=== PATIENT | male | born 1970 | race African-American/Black ===

== ENCOUNTER 2018-06-05 11:33 | Inpatient (IN) | payer OTHER ==
[2018-06-05 13:33] VITALS: BMI 21.9
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
[2018-06-05] MEDS ORDERED: MAG HYDROX/AL HYDROX/SIMETH 30 ML UNIT-DOSE CUP PO PRN (14:21)
[2018-06-05] MEDS ORDERED: P-EPHED 60MG/TRIPROLIDI 2.5MG TABLET PO PRN (14:21)
[2018-06-05] MEDS ORDERED: MAGNESIUM CITRATE 300 ML BOTTLE PO PRN (14:21)
[2018-06-05] MEDS ORDERED: MAGNESIUM HYDROX 2400MG/30ML ORAL SUSPENSION 30 ML CUP PO PRN (14:21)
[2018-06-05] MEDS ORDERED: guaiFENesin/D-METHORPHAN HB 10 ML UNIT-DOSE CUPS PO PRN (14:21)
[2018-06-05] MEDS ORDERED: IBUPROFEN 400 MG TABLET (FP) PO PRN (14:21)
[2018-06-05] MEDS ORDERED: ACETAMINOPHEN 325 MG TABLET (FP) PO PRN (14:21)
[2018-06-05] MEDS ORDERED: chlordiazePOXIDE HCL 25 MG CAPSULE PO PRN (14:21)
[2018-06-05] MEDS ORDERED: MENTHOL/PHENOL 1 EACH UD MM PRN (14:21)
[2018-06-05] MEDS: chlordiazePOXIDE HCL 25 MG CAPSULE PO SCH ×2 (17:25→22:13)
[2018-06-05] MEDS ORDERED: MELATONIN 5 MG TABLETS PO PRN (22:00)
[2018-06-05] MEDS: THIAMINE HCL 100 MG TABLET (FP) PO SCH (22:13)
[2018-06-05 23:15] LABS: URINE APPEARANCE CLEAR; URINE BILIRUBIN NEGATIVE (<2.0 mg/dL); URINE COLOR DKYELLOW; URINE GLUCOSE (UA) NEGATIVE (NEGATIVE); URINE KETONE 1+ (NEGATIVE); URINE LEUK ESTERASE NEGATIVE (NEGATIVE); URINE NITRITE NEGATIVE (NEGATIVE); URINE PROTEIN 1+ (NEGATIVE); URINE UROBILINOGEN NEGATIVE mg/dL (0.2-1.0)
[2018-06-06] MEDS: chlordiazePOXIDE HCL 25 MG CAPSULE PO SCH ×4 (05:22→22:27)
[2018-06-06] MEDS: PRENATAL VITAMINS W/ FOLIC ACID TABLET (FP) PO SCH (10:23)
--- NOTE | 2018-06-06 10:23 | CONSULT ---
[facility] Psychiatric Consult - Data Date of interview: 06/06/18 Admission source: [facility] Identifying data: This is one of several admissions to [facility] for this 47 y/ o AA male seeking detoxification treatment for alcohol, benzodiazepine and cocaine dependence. Patient is single without dependents, homeless, unemployed and supported on [employer] benefits. Substance Abuse History: Confirmed by patient. Details in current [facility] report : Smoking history: Current every day smoker. Have you smoked in the past 12 months: Yes. Aproximately how many cigarettes per day: 3. Cigars Per Day: 0. Hx Chewing Tobacco Use: No. Initiated information on smoking cessation: No. - Substances Abused. Cocaine. Route: Inhalation. Frequency: 1-2 times per week. Amount used: $50. Age of first use: 34. Date of Last Use: 06/04/18. * * Alcohol-vodka/beer. Route: Oral. Frequency: Daily. Amount used: 1 1/2 pts./ 3 4 lokos. Age of first use: 17. Date of Last Use: 06/04/18. Evan zodiazepine. Route: Oral. Frequency: 3-6 times per week. Amount used: 8 tabs. Age of first use: 47. Date of Last Use: 06/04/18 Medical History: HIV infection since 1993 (on ART medications). Psychiatric History: Patient denies history of psychiatric hospitalizations or suicide attempts. No prior exposure to psychotropic medications (with the exception of benzodiazepines bought in the streets). Physical/Sexual Abuse/Trauma History: Patient reports a history of severe traumatic life experiences : estrangement from biological mother, " betrayal " from past girlfriends, dysfunctional family, absence of a fatherly figure in his upbringing, poverty, past history of juvenile delinquency, homelessness, limited education in spite of early promises of academic excellence, discovery of being seropositive for HIV at age 22 (from a trusted live-in girlfriend) and multiple addictions. Additional Comment: Urine Drug Screen Results: SANDRA-Cocaine, BZO- Benzodiazepines. Noted. Mental Status Exam - Mental Status Exam Alert and Oriented to: Time, Place, Person Cognitive Function: Good Patient Appearance: Unkempt, Disheveled (tall stature) Mood: Nervous, Withdrawn, Apprehensive Affect: Mood Congruent, Constricted Patient Behavior: Fatigued, Talkative, Appropriate (calm, friendly), Cooperative Speech Pattern: Clear, Appropriate Voice Loudness: Normal Thought Process: Intact, Goal Oriented Thought Disorder: Not Present Hallucinations: Denies Suicidal Ideation: Denies Homicidal Ideation: Denies Insight/Judgement: Fair Sleep: Well Appetite: Good Muscle strength/Tone: Normal Gait/Station: Normal Psychiatric Findings - Problem List (Creole 1, 2,3) (1) Alcohol dependence Current Visit: Yes Status: Acute (2) Cocaine dependence Current Visit: Yes Status: Acute (3) Sedative dependence with current use Current Visit: Yes Status: Acute (4) Nicotine dependence Current Visit: Yes Status: Acute Qualifiers: Nicotine product type: cigarettes Substance use status: unspecified nicotine-induced disorder Qualified Code(s): F17.219 - Nicotine dependence, cigarettes, with unspecified nicotine-induced disorders (5) Substance induced mood disorder Current Visit: Yes Status: Acute - Initial Treatment Plan Initial Treatment Plan: Psychoeducation. Sleep hygiene. Detoxification already in progress. Support and empathy. Patient is made aware of currently available, FDA-approved measures for relapse prevention. Informed of the benefits of naltrexone (oral + KATE formulation), AA fellowship, psychotherapy (cognitive- behavioral) and avoidance of situations/associations that predispose to/trigger relapses. Patient has expressed the wish to be assisted in his goal to enroll in rehabilitation after completion of this course of treatment. Awaits assessment by counselor for referrals (patient willing to stay in rehab at [facility] or be referred elsewhere). Observation.
[2018-06-06 10:47] LABS: HEMATOCRIT 37.4 % (35.4-49); HEMOGLOBIN 11.8 GM/dL (11.7-16.9); MCH 29.3 pg (25.7-33.7); MCHC 31.6 g/dl (32.0-35.9); MEAN CELL VOLUME 92.6 fl (80-96); PLATELET COUNT 174 K/MM3 (134-434); RBC 4.04 M/mm3 (4.00-5.60); WHITE BLOOD COUNT 3.4 K/mm3 (4.0-10.0)
[2018-06-06 10:59] LABS: ALBUMIN 3.5 g/dl (3.4-5.0); ALK PHOS 92 U/L (45-117); ANION GAP 9 MMOL/L (8-16); BILIRUBIN,TOTAL 0.4 mg/dL (0.2-1); BLOOD UREA NITROGEN 26 mg/dL (7-18); CALCIUM 8.5 mg/dL (8.5-10.1); CHLORIDE 101 mmol/L (98-107); CO2 24 mmol/L (21-32); CREATININE 1.4 mg/dL (0.55-1.3); GLUCOSE,RANDOM 104 mg/dL (74-106); POTASSIUM 3.8 mmol/L (3.5-5.1); SGOT/AST 145 U/L (15-37); SGPT/ALT 58 U/L (13-61); SODIUM 134 mmol/L (136-145); TOT PROT 7.8 g/dl (6.4-8.2)
[2018-06-06] MEDS ORDERED: FLU VACCINE QUAD 60 MCG/0.5 ML (MDV 18-19) IM ONE (12:00)
--- NOTE | 2018-06-06 14:20 | PN ---
S CIWA - CIWA Score Nausea/Vomitin-No Nausea/No Vomiting Muscle Tremors: 4-Moderate,w/Arms Extend Anxiety: 4-Mod. Anxious/Guarded Agitation: 3 Paroxysmal Sweats: 1-Minimal Palms Moist Orientation: 0-Oriented Tacttile Disturbances: 0-None Auditory Disturbances: 0-None Visual Disturbances: 0-None Headache: 0-None Present CIWA-Ar Total Score: 12 BHS Progress Note (SOAP) Subjective: ANXIETY,FATIGUE,DECREASED APPETITE. Objective: 06/06/18 14:20 Vital Signs 06/06/18 06/06/18 06/06/18 06:40 09:51 13:09 Temperature 97.6 F 97.7 F 97.7 F Pulse Rate 83 76 85 Respiratory 18 18 18 Rate Blood Pressure 110/60 110/70 100/63 Laboratory Tests 06/05/18 06/06/18 06/06/18 23:00 07:50 07:50 WBC 3.4 L RBC 4.04 Hgb 11.8 Hct 37.4 MCV 92.6 MCH 29.3 MCHC 31.6 L RDW 17.0 H Plt Count 174 D MPV 8.0 Sodium 134 L Potassium 3.8 Chloride 101 Carbon Dioxide 24 Anion Gap 9 BUN 26 H Creatinine 1.4 H Creat Clearance w eGFR 54.32 Random Glucose 104 Calcium 8.5 Total Bilirubin 0.4 AST 145 H ALT 58 Alkaline Phosphatase 92 Total Protein 7.8 Albumin 3.5 Urine Color Dkyellow Urine Appearance Clear Urine pH 5.0 Ur Specific [place] 1.026 Urine Protein 1+ H Urine Glucose (UA) Negative Urine Ketones 1+ H Urine Blood Negative Urine Nitrite Negative Urine Bilirubin Negative Urine Urobilinogen Negative Ur Leukocyte Esterase Negative Urine WBC (Auto) None Urine RBC (Auto) None RPR Titer 06/06/18 07:50 WBC RBC Hgb Hct MCV MCH MCHC RDW Plt Count MPV Sodium Potassium Chloride Carbon Dioxide Anion Gap BUN Creatinine Creat Clearance w eGFR Random Glucose Calcium Total Bilirubin AST ALT Alkaline Phosphatase Total Protein Albumin Urine Color Urine Appearance Urine pH Ur Specific [place] Urine Protein Urine Glucose (UA) Urine Ketones Urine Blood Urine Nitrite Urine Bilirubin Urine Urobilinogen Ur Leukocyte Esterase Urine WBC (Auto) Urine RBC (Auto) RPR Titer Nonreactive Assessment: 06/06/18 14:20 WITHDRAWAL SX Plan: CONTINUE DETOX INCREASE PO FLUIDS
[2018-06-06] MEDS: THIAMINE HCL 100 MG TABLET (FP) PO SCH (22:27)
[2018-06-07] MEDS: chlordiazePOXIDE HCL 25 MG CAPSULE PO SCH ×2 (05:18→10:39)
[2018-06-07] MEDS: PRENATAL VITAMINS W/ FOLIC ACID TABLET (FP) PO SCH (10:39)
[2018-06-07] MEDS ORDERED: hydrOXYzine PAMOATE 50 MG CAPSULE (FP) PO PRN (13:04)
[2018-06-07] MEDS ORDERED: ONDANSETRON *ODT* 4 MG TABLET SL PRN (13:05)
[2018-06-07] MEDS: chlordiazePOXIDE 5 MG CAPSULE PO SCH ×2 (17:14→22:33)
--- NOTE | 2018-06-07 17:39 | PN ---
S CIWA - CIWA Score Nausea/Vomitin Muscle Tremors: 3 Anxiety: 3 Agitation: 3 Paroxysmal Sweats: 2 Orientation: 0-Oriented Tacttile Disturbances: 0-None Auditory Disturbances: 0-None Visual Disturbances: 0-None Headache: 0-None Present CIWA-Ar Total Score: 13 BHS Progress Note (SOAP) Subjective: Nausea, interrupted sleep, anxious Objective: 06/07/18 17:38 Last Vital Signs Temp Pulse Resp BP Pulse Ox 97.9 F 81 17 120/74 06/07/18 17:17 06/07/18 17:17 06/07/18 17:17 06/07/18 17:17 Laboratory Tests 06/05/18 06/06/18 06/06/18 23:00 07:50 07:50 WBC 3.4 L RBC 4.04 Hgb 11.8 Hct 37.4 MCV 92.6 MCH 29.3 MCHC 31.6 L RDW 17.0 H Plt Count 174 D MPV 8.0 Sodium 134 L Potassium 3.8 Chloride 101 Carbon Dioxide 24 Anion Gap 9 BUN 26 H Creatinine 1.4 H Creat Clearance w eGFR 54.32 Random Glucose 104 Calcium 8.5 Total Bilirubin 0.4 AST 145 H ALT 58 Alkaline Phosphatase 92 Total Protein 7.8 Albumin 3.5 Urine Color Dkyellow Urine Appearance Clear Urine pH 5.0 Ur Specific [place] 1.026 Urine Protein 1+ H Urine Glucose (UA) Negative Urine Ketones 1+ H Urine Blood Negative Urine Nitrite Negative Urine Bilirubin Negative Urine Urobilinogen Negative Ur Leukocyte Esterase Negative Urine WBC (Auto) None Urine RBC (Auto) None RPR Titer 06/06/18 07:50 WBC RBC Hgb Hct MCV MCH MCHC RDW Plt Count MPV Sodium Potassium Chloride Carbon Dioxide Anion Gap BUN Creatinine Creat Clearance w eGFR Random Glucose Calcium Total Bilirubin AST ALT Alkaline Phosphatase Total Protein Albumin Urine Color Urine Appearance Urine pH Ur Specific [place] Urine Protein Urine Glucose (UA) Urine Ketones Urine Blood Urine Nitrite Urine Bilirubin Urine Urobilinogen Ur Leukocyte Esterase Urine WBC (Auto) Urine RBC (Auto) RPR Titer Nonreactive Labs reviewed: serum creatinine 1.4, GFR 54.32, BUN 26; abnormal UA Assessment: 06/07/18 17:38 Withdrawal symptoms Noted with STEVE and abnormal UA Plan: Continue detox STEVE: encouraged PO water intake, repeat BMP Abnormal UA: repeat UA
[2018-06-07] MEDS: THIAMINE HCL 100 MG TABLET (FP) PO SCH (22:33)
[2018-06-08] MEDS: chlordiazePOXIDE 5 MG CAPSULE PO SCH ×2 (06:09→10:47)
[2018-06-08 10:28] LABS: ANION GAP 5 MMOL/L (8-16); BLOOD UREA NITROGEN 17 mg/dL (7-18); CALCIUM 8.6 mg/dL (8.5-10.1); CHLORIDE 104 mmol/L (98-107); CO2 27 mmol/L (21-32); CREATININE 1.1 mg/dL (0.55-1.3); GLUCOSE,RANDOM 116 mg/dL (74-106); POTASSIUM 4.1 mmol/L (3.5-5.1); SODIUM 137 mmol/L (136-145)
[2018-06-08] MEDS: PRENATAL VITAMINS W/ FOLIC ACID TABLET (FP) PO SCH (10:47)
--- NOTE | 2018-06-08 16:39 | PN ---
BHS Progress Note (SOAP) Subjective: sleep disturbance Objective: 06/08/18 16:37 SLEEPING AROUSABLE TO VERBAL STIMULI A & O X 3 NO COMPLAINTS OFFERED Vital Signs Temperature 98.5 F 06/08/18 13:26 Pulse Rate 71 06/08/18 13:26 Respiratory Rate 18 06/08/18 13:26 Blood Pressure 121/69 06/08/18 13:26 O2 Sat by Pulse Oximetry (%) Assessment: 06/08/18 16:39 WITHDRAWAL SX Plan: CONTINUE DETOX FOR D/C IN A.M
[2018-06-08] MEDS: chlordiazePOXIDE HCL 10 MG CAPSULE PO SCH ×2 (17:40→22:59)
[2018-06-08] MEDS: THIAMINE HCL 100 MG TABLET (FP) PO SCH (22:59)
[2018-06-09] MEDS: chlordiazePOXIDE HCL 10 MG CAPSULE PO SCH (05:57)
[2018-06-09 06:28] VITALS: BP 107/65; PULSE 74; TEMP 97.2
--- NOTE | 2018-06-09 10:51 | DS ---
[facility] Detox Discharge Summary Admission Date: 06/05/18 Discharge Date: 06/09/18 - History Present History: Alcohol Dependence, Cocaine Dependence, Sedative Dependence Additional Comments: Patient completed detox successfully. Patient is A, A, Ox3, in nad. Patient instructed to follow up with PCP within 1-2 weeks. Pertinent Past History: Sedative dependence Alcohol dependence Cocaine dependence Nicotine dependence - Physical Exam Results Vital Signs: Vital Signs Temperature 97.2 F L 06/09/18 06:27 Pulse Rate 74 06/09/18 06:27 Respiratory Rate 18 06/09/18 06:27 Blood Pressure 107/65 06/09/18 06:27 O2 Sat by Pulse Oximetry (%) Pertinent Admission Physical Exam Findings: Withdrawal symptoms Laboratory Tests 06/05/18 06/06/18 06/06/18 23:00 07:50 07:50 WBC 3.4 L RBC 4.04 Hgb 11.8 Hct 37.4 MCV 92.6 MCH 29.3 MCHC 31.6 L RDW 17.0 H Plt Count 174 D MPV 8.0 Sodium 134 L Potassium 3.8 Chloride 101 Carbon Dioxide 24 Anion Gap 9 BUN 26 H Creatinine 1.4 H Creat Clearance w eGFR 54.32 Random Glucose 104 Calcium 8.5 Total Bilirubin 0.4 AST 145 H ALT 58 Alkaline Phosphatase 92 Total Protein 7.8 Albumin 3.5 Urine Color Dkyellow Urine Appearance Clear Urine pH 5.0 Ur Specific [place] 1.026 Urine Protein 1+ H Urine Glucose (UA) Negative Urine Ketones 1+ H Urine Blood Negative Urine Nitrite Negative Urine Bilirubin Negative Urine Urobilinogen Negative Ur Leukocyte Esterase Negative Urine WBC (Auto) None Urine RBC (Auto) None RPR Titer 06/06/18 06/08/18 07:50 06:30 WBC RBC Hgb Hct MCV MCH MCHC RDW Plt Count MPV Sodium 137 Potassium 4.1 Chloride 104 Carbon Dioxide 27 Anion Gap 5 L BUN 17 Creatinine 1.1 Creat Clearance w eGFR > 60 Random Glucose 116 H Calcium 8.6 Total Bilirubin AST ALT Alkaline Phosphatase Total Protein Albumin Urine Color Urine Appearance Urine pH Ur Specific [place] Urine Protein Urine Glucose (UA) Urine Ketones Urine Blood Urine Nitrite Urine Bilirubin Urine Urobilinogen Ur Leukocyte Esterase Urine WBC (Auto) Urine RBC (Auto) RPR Titer Nonreactive Labs reviewed: abnormal UA noted (reordered, was not done), patient encouraged to drink adequate amount of water and follow up with PCP - Treatment Hospital Course: Detox Protocol Followed, Detoxed Safely, Responded well, Discharged Condition Good - Medication Discharge Medications: Ambulatory Orders NK [No Known Home Medication] 06/05/18 - Diagnosis (1) STEVE (acute kidney injury) Status: Resolved (2) Abnormal finding on urinalysis Status: Acute (3) Alcohol dependence with uncomplicated withdrawal Status: Acute (4) Cocaine dependence, uncomplicated Status: Chronic (5) Nicotine dependence Status: Chronic Qualifiers: Nicotine product type: cigarettes Substance use status: unspecified nicotine-induced disorder Qualified Code(s): F17.219 - Nicotine dependence, cigarettes, with unspecified nicotine-induced disorders (6) Sedative, hypnotic or anxiolytic dependence with withdrawal, uncomplicated Status: Acute - AMA Did Patient Leave Against Medical Advice: No (F/U with PCP within 1-2 weeks)
== END 2018-06-09 09:16 | disposition home or self-care (01) | DRG 774 ==
LOC: YASAS 11:33 → Y3N 15:13
PROC: HZ2ZZZZ Detoxification Services for Substance Abuse Treatment (ICD-10-PCS; principal; 2018-06-05)
DX: F10.230 Alcohol dependence with withdrawal, uncomplicated (principal); F13.230 Sedative, hypnotic or anxiolytic dependence with withdrawal, uncomplicated; F14.20 Cocaine dependence, uncomplicated; F17.210 Nicotine dependence, cigarettes, uncomplicated; F19.24 Other psychoactive substance dependence with psychoactive substance-induced mood disorder; B20 Human immunodeficiency virus [HIV] disease; N17.9 Acute kidney failure, unspecified; B37.0 Candidal stomatitis; K13.70 Unspecified lesions of oral mucosa; R82.90 Unspecified abnormal findings in urine; R63.4 Abnormal weight loss; Z68.22 Body mass index [BMI] 22.0-22.9, adult
CPT/HCPCS: 36415; 80048; 80053; 81003; 81015; 85027; 86593; 90688; G0008